=== PATIENT | male | born 1975 | race Caucasian/White ===

== ENCOUNTER 2018-03-11 09:37 | Emergency (ER) | payer SELFPAY ==
[2018-03-11 09:40] VITALS: BMI 24.3
[2018-03-11 09:41] VITALS: BP 132/76; PULSE 82; RESP 17; TEMP 98.1; O2SAT 97
--- NOTE | 2018-03-11 10:02 | ED PDOC ---
HPI: General Adult Time Seen by Provider: 03/11/18 09:50 Chief Complaint (Nursing): Abnormal Skin Integrity Additional Complaint(s): 42 y/o M p/w L arm rash x 1 day. Patient states he placed a patch on the area which is intended to detect any drug abuse that he has to submit to someone on Tuesday and under the patch and the surrounding area, he has developed a rash that is itchy. He denies fever, inability to range shoulder or elbow, discharge. Past Medical History Vital Signs: Last Vital Signs Temp 98.1 F 03/11/18 09:40 Pulse 82 03/11/18 09:40 Resp 17 03/11/18 09:40 BP 132/76 03/11/18 09:40 Pulse Ox 97 03/11/18 09:40 - Medical History PMH: Denies: Asthma, CAD, HTN - Family History Family History: States: Unknown Family Hx - Immunization History Hx Tetanus Toxoid Vaccination: No Hx Influenza Vaccination: No Hx Pneumococcal Vaccination: No - Home Medications Home Medications: Ambulatory Orders Medication Instructions Recorded DiphenhydrAMINE [Benadryl] 2 cap PO Q8 #25 cap 03/11/18 Famotidine [Pepcid] 1 tab PO BID #14 tab 03/11/18 - Allergies Allergies/Adverse Reactions: Allergies Allergy/AdvReac Type Severity Reaction Status Date / Time No Known Allergies Allergy Verified 05/11/16 07:15 Review of Systems ROS Statement: Except As Marked, All Systems Reviewed And Found Negative Constitutional: Negative for: Fever Respiratory: Negative for: Shortness of Breath Physical Exam - Physical Exam Comments: Gen: NAD Head: NC Eyes: No scleral icterus ENT: MMM CV: Regular rate Resp: No accessory muscle use Skin: L arm over deltoid with erythematous, blanching, papular, nonvesicular, nontender rash that patient is constantly scratching Extremities: FROM shoulder and elbow, no swelling Neuro: Alert, motor and sensation intact in arm - ECG O2 Sat by Pulse Oximetry: 97 Medical Decision Making Medical Decision Making: Patient states patch can be removed as it has been on for over 24 hours which patient states was told is sufficient time. Patch removed and placed in bag and given to patient. Educated on care of this local allergic rash, advised not to scratch, given Benadryl and Pepcid, f/u PMD, instructed to return for fever or inability to range. Disposition - Clinical Impression Clinical Impression: Dermatitis, contact - Patient ED Disposition Is Patient to be Admitted: No - Disposition Disposition: Routine/Home Disposition Time: 10:05 Condition: STABLE Prescriptions: DiphenhydrAMINE [Benadryl] 2 cap PO Q8 #25 cap Famotidine [Pepcid] 1 tab PO BID #14 tab Instructions: Contact Dermatitis (DC)
== END 2018-03-11 10:07 | disposition home or self-care (01) ==
LOC: H.ER 09:37
DX: L30.9 Dermatitis, unspecified (principal)